=== PATIENT | female | born 1995 | race African-American/Black ===

== ENCOUNTER → 2017-02-15 | Outpatient (CLI) | payer OTHER ==
--- NOTE | 2017-02-15 10:51 | KCIC ---
OB ultrasound dated 02/15/2017: No comparison available. Clinical Indication: Uterine size discrepancy. Anatomy scan. Findings: There is a single intrauterine gestation in breech presentation. The placenta is anterior in location without evidence of placental previa. The amount of amniotic fluid appears appropriate. RAVEN equals 15.5 cm. Cervical length measures 5.8 cm. Biometrical data is as follows: BPD = 4.5 cm for 19 weeks 4 days. HC = 16.5 cm for 19 weeks 1 days. AC = 13.1 cm for 18 weeks 4 days. FL = 2.6 cm for 18 weeks 0 days. Overall, the estimated sonographic gestational age is 18 weeks 6 days for an estimated date of delivery of 07/13/2017. This is within 5 days of the estimated date of delivery provided by the last menstrual period. Estimated weight is 241 g. A 4 chamber heart is identified with positive cardiac activity. The estimated heart rate is 137 beats per minute. Bilateral upper and lower extremities are identified. There is a three-vessel cord with cord insertion visualized. stomach and urinary bladder are identified. Both kidneys are seen. The spine and brain are unremarkable. No gross abnormalities are identified. Impression: Single viable intrauterine gestation with estimated sonographic gestational age of 18 weeks 6 days. No apparent abnormality. Electronically signed by: Phillip Perez MD (02/15/2017 10:48 AM) [id number]
== END | disposition home or self-care (01) ==
LOC: KCIC US 07:48
PROVIDERS: ATTEND Obstetrics & Gynecology
DX: O09.92 Supervision of high risk pregnancy, unspecified, second trimester (principal); O26.842 Uterine size-date discrepancy, second trimester; Z3A.18 18 weeks gestation of pregnancy
CPT/HCPCS: 76805

== ENCOUNTER 2017-10-12 16:16 | Emergency (ER) | payer BC, OTHER | END 2017-10-12 17:07 | disposition home or self-care (01) | LOC: ER 16:16 | DX: M72.2 Plantar fascial fibromatosis (principal) | CPT/HCPCS: 99282 ==

== ENCOUNTER → 2019-10-19 | Outpatient (CLI) | payer OTHER, MEDICAID ==
[2017-10-12 16:25] VITALS: BP 100/72
[~2019-10-19] MED LIST: NAPR500T8 PO
--- NOTE | 2019-10-19 16:17 | RAD ---
EXAM: Obstetrics sonogram. HISTORY: Size and dates discrepancy. TECHNIQUE: Sonographic imaging of the uterus was performed. COMPARISON: None. FINDINGS: There is a single intrauterine fetus in cephalic presentation with a normal heart rate of 147 bpm. There is body motion. There is a four-chamber heart. There is a three-vessel umbilical cord with normal insertion. The stomach, kidneys, bladder, spine, brain, facial profile and extremities are unremarkable. The cervix is long and closed. The amniotic fluid index is normal. There is an anterior grade 1 placenta without evidence of placenta previa. The biparietal diameter is 4.08 cm, corresponding with 18 weeks and 3 days. The head circumference is 15.53 cm, corresponding with 18 weeks and 3 days. The abdominal circumference is 4.71 cm, corresponding with 18 weeks and 2 days. The femoral length is 2.60 cm, corresponding with 17 weeks and 6 days. The estimated gestational age patient combined also measurements is 18 weeks and 2 days and the estimated due date is 03/19/2020. The estimated weight is 228 g. IMPRESSION: Single intrauterine fetus with a normal heart rate and gestational age based on ultrasound measurements of 18 weeks and 2 days. Electronically signed by: Vivien Herrera MD (10/19/2019 4:14 PM) [facility]
== END | disposition home or self-care (01) ==
LOC: US 15:31
PROVIDERS: ATTEND Obstetrics & Gynecology
DX: O26.842 Uterine size-date discrepancy, second trimester (principal); Z3A.18 18 weeks gestation of pregnancy
CPT/HCPCS: 76805

== ENCOUNTER → 2020-01-21 | Outpatient (CLI) | payer OTHER, MEDICAID ==
[2017-10-12 16:25] VITALS: BP 100/72
== END | disposition home or self-care (01) ==
LOC: LAB 09:27
PROVIDERS: ATTEND Obstetrics & Gynecology
DX: O09.93 Supervision of high risk pregnancy, unspecified, third trimester (principal); Z3A.30 30 weeks gestation of pregnancy
CPT/HCPCS: 36415; 82947; 82950